=== PATIENT | male | born 1945 | race Caucasian/White ===

== ENCOUNTER 2020-01-12 12:51 | Observation (INO) | payer MEDICARE, BC ==
--- NOTE | 2020-01-12 12:56 | EDM.PDOC ---
ED HPI GENERAL MEDICAL PROBLEM - General Chief Complaint: Neuro Symptoms/Deficits Stated Complaint: FRANCISCO CAPUTOMOTariq Time Seen by Provider: 01/12/20 12:51 - History of Present Illness INITIAL COMMENTS - FREE TEXT/NARRATIVE: 74-year-old male brought in by EMS with left-sided weakness. Patient was last known normal around 1030 this morning are time. Right after this he developed some significant left arm weakness and to a lesser degree left leg weakness. He has some associated numbness but has a hard time describing this. By the time he arrives here he thinks he is back to normal on exam he had a little bit of ulnar drift on the left remaining weakness was not discernible on exam. Patient denies any other symptoms. Patient has no history of having symptoms like this in the past but he has had known vascular disease - Related Data Allergies Allergy/AdvReac Type Severity Reaction Status Date / Time Penicillins Allergy Other Verified 01/12/20 13:03 Home Meds: Home Meds Allopurinol [Zyloprim] 150 mg PO DAILY 01/12/20 [History] Aspirin [Aspirin EC] 81 mg PO DAILY 01/12/20 [History] Calcium Carbonate 600 mg PO DAILY 01/12/20 [History] Digoxin [Lanoxin] 250 mcg PO DAILY 01/12/20 [History] Indomethacin 1 - 2 mg PO DAILY 01/12/20 [History] Nortriptyline HCl [Pamelor] 100 mg PO BEDTIME 01/12/20 [History] Omeprazole 20 mg PO DAILY 01/12/20 [History] Pravastatin Sodium [Pravachol] 40 mg PO DAILY 01/12/20 [History] lisinopriL [Lisinopril] 0.5 tab PO DAILY 01/12/20 [History] ED ROS GENERAL - Review of Systems Review Of Systems: See Below HEENT: Reports: No Symptoms Respiratory: Reports: No Symptoms Cardiovascular: Reports: No Symptoms Endocrine: Reports: No Symptoms GI/Abdominal: Reports: No Symptoms : Reports: No Symptoms Neurological: Reports: Weakness. Denies: Confusion, Dizziness, Trouble Speaking Psychiatric: Reports: No Symptoms Hematologic/Lymphatic: Reports: No Symptoms ED EXAM, NEURO - Physical Exam Exam: See Below Exam Limited By: No Limitations General Appearance: Alert, No Apparent Distress Eye Exam: Bilateral Eye: EOMI, Normal Inspection, PERRL Ears: Normal External Exam, Normal Canal, Hearing Grossly Normal, Normal TMs Nose: Normal Inspection, Normal Mucosa, No Blood Throat/Mouth: Normal Inspection, Normal Lips, Normal Teeth, Normal Gums, Normal Oropharynx, Normal Voice, No Airway Compromise Head Exam: Atraumatic, Normocephalic Neck: Normal Inspection, Supple, Non-Tender, Full Range of Motion Respiratory/Chest: No Respiratory Distress, Lungs Clear, Normal Breath Sounds, No Accessory Muscle Use, Chest Non-Tender, Decreased Breath Sounds Cardiovascular: Regular Rate, Rhythm, No Edema, No Murmur GI/Abdominal: Normal Bowel Sounds, Soft, Non-Tender, No Distention Neurological: Alert, Normal Mood/Affect, Other (At the time of my initial exam he had some ulnar drift on the left arm however no other weakness was identified.) Back Exam: Normal Inspection. No: CVA Tenderness (L), CVA Tenderness (R) Extremities: Normal Inspection, Normal Range of Motion, Non-Tender Psychiatric: Normal Affect, Normal Mood Skin Exam: Warm, Dry, Intact Course - Vital Signs Last Recorded V/S: Last Vital Signs Temp 36.6 C 01/12/20 13:03 Pulse 88 01/12/20 13:03 Resp 18 01/12/20 13:03 BP 140/73 01/12/20 13:03 Pulse Ox 98 01/12/20 13:03 - Orders/Labs/Meds Orders: Active Orders 24 hr Category Date Time Status EKG Documentation Completion [RC] STAT Care 01/12/20 12:54 Active Sodium Chloride 0.9% [Normal Saline] 100 ml Med 01/12/20 14:00 Active IV ASDIRECTED Medication Orders Sodium Chloride (Normal Saline) 100 mls @ 60 mls/hr IV ASDIRECTED YUKO Last Admin: 01/12/20 14:26 Dose: 60 mls/hr Documented by: EH Labs: Laboratory Tests 01/12/20 01/12/20 01/12/20 Range/Units 13:04 13:15 13:15 WBC 7.68 (4.23-9.07) K/mm3 RBC 4.39 L (4.63-6.08) M/mm3 Hgb 14.0 (13.7-17.5) gm/dl Hct 40.8 (40.1-51.0) % MCV 92.9 H (79.0-92.2) fl MCH 31.9 (25.7-32.2) pg MCHC 34.3 (32.2-35.5) g/dl RDW Std Deviation 45.8 H (35.1-43.9) fL Plt Count 467 H (163-337) K/mm3 MPV 9.1 L (9.4-12.3) fl Neut % (Auto) 68.1 H (34.0-67.9) % Lymph % (Auto) 16.7 L (21.8-53.1) % [place] % (Auto) 12.9 H (5.3-12.2) % Eos % (Auto) 1.8 (0.8-7.0) Baso % (Auto) 0.5 (0.1-1.2) % Neut # (Auto) 5.23 (1.78-5.38) K/mm3 Lymph # (Auto) 1.28 L (1.32-3.57) K/mm3 [place] # (Auto) 0.99 H (0.30-0.82) K/mm3 Eos # (Auto) 0.14 (0.04-0.54) K/mm3 Baso # (Auto) 0.04 (0.01-0.08) K/mm3 PT 11.3 (9.7-11.7) SECONDS INR 1.06 APTT 29 (22-31) SECONDS Sodium (136-145) mEq/L Potassium (3.5-5.1) mEq/L Chloride (98-107) mEq/L Carbon Dioxide (21-32) mEq/L Anion Gap (5-15) BUN (7-18) mg/dL Creatinine (0.7-1.3) mg/dL Est Cr Clr Drug Dosing mL/min Estimated GFR (MDRD) (>60) mL/min BUN/Creatinine Ratio (14-18) Glucose (83-115) mg/dL POC Glucose 169 H (83-110) mg/dL Calcium (8.5-10.1) mg/dL Total Bilirubin (0.2-1.0) mg/dL AST (15-37) U/L ALT (16-63) U/L Alkaline Phosphatase (46-116) U/L Troponin I (0.00-0.056) ng/mL Total Protein (6.4-8.2) g/dl Albumin (3.4-5.0) g/dl Globulin gm/dL Albumin/Globulin Ratio (1-2) Digoxin (0.9-2.0) ng/mL 01/12/20 01/12/20 Range/Units 13:15 13:15 WBC (4.23-9.07) K/mm3 RBC (4.63-6.08) M/mm3 Hgb (13.7-17.5) gm/dl Hct (40.1-51.0) % MCV (79.0-92.2) fl MCH (25.7-32.2) pg MCHC (32.2-35.5) g/dl RDW Std Deviation (35.1-43.9) fL Plt Count (163-337) K/mm3 MPV (9.4-12.3) fl Neut % (Auto) (34.0-67.9) % Lymph % (Auto) (21.8-53.1) % [place] % (Auto) (5.3-12.2) % Eos % (Auto) (0.8-7.0) Baso % (Auto) (0.1-1.2) % Neut # (Auto) (1.78-5.38) K/mm3 Lymph # (Auto) (1.32-3.57) K/mm3 [place] # (Auto) (0.30-0.82) K/mm3 Eos # (Auto) (0.04-0.54) K/mm3 Baso # (Auto) (0.01-0.08) K/mm3 PT (9.7-11.7) SECONDS INR APTT (22-31) SECONDS Sodium 129 L (136-145) mEq/L Potassium 4.1 (3.5-5.1) mEq/L Chloride 93 L (98-107) mEq/L Carbon Dioxide 29 (21-32) mEq/L Anion Gap 11.1 (5-15) BUN 9 (7-18) mg/dL Creatinine 1.2 (0.7-1.3) mg/dL Est Cr Clr Drug Dosing 52.02 mL/min Estimated GFR (MDRD) 60 (>60) mL/min BUN/Creatinine Ratio 7.5 L (14-18) Glucose 174 H (83-115) mg/dL POC Glucose (83-110) mg/dL Calcium 8.6 (8.5-10.1) mg/dL Total Bilirubin 0.4 (0.2-1.0) mg/dL AST 19 (15-37) U/L ALT 25 (16-63) U/L Alkaline Phosphatase 96 (46-116) U/L Troponin I < 0.017 (0.00-0.056) ng/mL Total Protein 6.8 (6.4-8.2) g/dl Albumin 3.3 L (3.4-5.0) g/dl Globulin 3.5 gm/dL Albumin/Globulin Ratio 0.9 L (1-2) Digoxin < 0.2 L (0.9-2.0) ng/mL Meds: Medications Generic Name Dose Route Start Last Admin Trade Name Freq PRN Reason Stop Dose Admin Sodium Chloride 100 mls @ 60 mls/hr 01/12/20 14:00 01/12/20 14:26 Normal Saline IV 60 mls/hr ASDIRECTED YUKO Administration Discontinued Medications Generic Name Dose Route Start Last Admin Trade Name Freq PRN Reason Stop Dose Admin Aspirin 325 mg 01/12/20 14:23 Ecotrin PO 01/12/20 14:24 ONETIME ONE Clopidogrel Bisulfate 75 mg 01/12/20 14:23 Plavix PO 01/12/20 14:24 ONETIME ONE Sodium Chloride 1,000 mls @ 125 mls/hr 01/12/20 14:30 Normal Saline IV ASDIRECTED YUKO Sodium Chloride 500 mls @ 999 mls/hr 01/12/20 14:20 Normal Saline IV 01/12/20 14:50 .BOLUS ONE Iopamidol 100 ml 01/12/20 13:50 01/12/20 14:26 Isovue-370 (76%) IVPUSH 01/12/20 13:51 100 ml ONETIME ONE Administration Sodium Chloride 10 ml 01/12/20 13:50 01/12/20 14:26 Saline Flush FLUSH 01/12/20 13:51 10 ml ONETIME ONE Administration - Re-Assessments/Exams Free Text/Narrative Re-Assessment/Exam: 01/12/20 14:38 The patient appears to have had a TIA. After he returned from CT his ulnar drift was gone no other neurologic symptoms. Case discussed the case with Dr. Johnson, neurologist at [facility] in [place], he recommends CTA of head neck starting aspirin and Plavix for 3 weeks then monotherapy after this. He also recommends observation. His initial CT was unremarkable CTA of the head and neck is pending as is brain MRI. 01/12/20 16:01 CTA of the neck shows some mild atheromatous change within the carotid bulbs and proximal internal carotid arteries this is noted on both sides no other abnormalities really appreciated on the study no significant changes on the CTA of the head. 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 I discussed situation with Dr. Macdonald, the hospitalist the patient will go on observation. Departure - Departure Time of Disposition: 16:03 Disposition: Refer to Observation Clinical Impression: TIA (transient ischemic attack) - Discharge Information Referrals: Derrick Anderson MD [Primary Care Provider] - Forms: ED Department Discharge Sepsis Event Note (ED) - Focused Exam Vital Signs: Vital Signs Temp Pulse Resp BP Pulse Ox 01/12/20 13:03 36.6 C 88 18 140/73 98 - My Orders Last 24 Hours: My Active Orders 01/12/20 12:54 EKG Documentation Completion [RC] STAT 01/12/20 14:00 Sodium Chloride 0.9% [Normal Saline] 100 ml IV ASDIRECTED - Assessment/Plan Last 24 Hours: My Active Orders 01/12/20 12:54 EKG Documentation Completion [RC] STAT 01/12/20 14:00 Sodium Chloride 0.9% [Normal Saline] 100 ml IV ASDIRECTED
--- NOTE | 2020-01-12 13:39 | CT ---
Head CT Technique: Multiple axial sections through the brain were obtained. Intravenous contrast was not utilized. Comparison: No previous intracranial imaging is available. Findings: Ventricles along with basal cisterns and sulci over the convexities are mildly prominent. Minimal areas of diminished density are seen within the periventricular white matter most likely due to small vessel ischemic demyelination change. No other abnormal parenchymal densities are seen. No evidence of intracranial hemorrhage or mass-effect is appreciated. Bone window settings were reviewed. No acute calvarial finding is seen. Visualized mastoid sinuses and visualized paranasal sinuses show nothing acute. Impression: 1. Mild senescent change as noted above. 2. Nothing acute is identified on noncontrast head CT study. Note: Please correlate if patient's symptoms warrant further evaluation by MRI. Diagnostic code #2 This report was dictated in MDT
[2020-01-12] MEDS ORDERED: Iopamidol 755 Mg/ML 100 ML Bottle IVPUSH ONE (13:50)
[2020-01-12] MEDS ORDERED: Sodium Chloride 0.9% 10 ML Syringe FLUSH ONE (13:50)
[2020-01-12] MEDS ORDERED: Sodium Chloride 0.9% 100 ML IV SCH (14:00)
[2020-01-12] MEDS ORDERED: Sodium Chloride 0.9% 500 ML IV ONE (14:20)
[2020-01-12] MEDS ORDERED: Aspirin 325 MG Tab.EC PO ONE (14:23)
[2020-01-12] MEDS ORDERED: Clopidogrel 75 MG Tab PO ONE (14:23)
[2020-01-12] MEDS ORDERED: Sodium Chloride 0.9% 1,000 ML IV SCH (14:30)
--- NOTE | 2020-01-12 14:38 | MR ---
MRI brain Technique: T1 sagittal; T2, T2 FLAIR, T1 and diffusion axial; T1 FLAIR and T2 gradient echo coronal images were obtained. Comparison: Prior head CT study performed earlier on the same day (12:55 PM). Findings: Ventricles along with basal cisterns and sulci over the convexities are mildly prominent. Normal signal void is seen within the major cerebral arteries within the skull base. Mild areas of increased signal are scattered within the subcortical and periventricular white matter most likely representing minimal small vessel ischemic demyelination change. No other abnormal signal is seen within the brain parenchyma. 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 No other abnormal diffusion abnormalities are seen. Impression: 1. 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 2. Mild senescent change as noted above. 3. No additional abnormality is appreciated. Diagnostic code #3 This report was dictated in MDT
--- NOTE | 2020-01-12 15:07 | CT ---
CT neck angiogram Technique: Multiple axial sections through the neck were obtained. Intravenous contrast was utilized in the arterial phase. Multiple MIP images were obtained. Comparison: No prior vascular imaging of the neck is available. Findings: Vertebral arteries: Both vertebral arteries are fairly symmetric in size. No evidence of stenosis or occlusion. Nothing is seen to indicate dissection. Vertebral arteries are patent into the basilar artery. Carotid arteries: Common carotid arteries are patent on both sides. There is mild atheromatous irregularity being seen within the carotid bulb and proximal internal carotid arteries on both sides. No hemodynamic significant stenosis is seen. Other portions of the internal carotid arteries appeared normal. Proximal external carotid arteries appear within normal limits. Impression: 1. Mild atheromatous change within the carotid bulbs and proximal internal carotid arteries. This is noted on both sides. 2. No focal stenosis, occlusion or dissection is seen within the vertebral arteries, common carotid arteries or internal or external carotid arteries. Diagnostic code #2 This report was dictated in MDT
--- NOTE | 2020-01-12 15:07 | CT ---
CT angiogram of the brain Technique: Multiple axial sections through the brain were obtained. Intravenous contrast was utilized. Study obtained during the arterial phase. Findings: Carotid siphon appears to be patent into the middle and anterior cerebral arteries. No focal stenosis or occlusion is seen. Both vertebral arteries are patent into the basilar artery. Basilar artery is patent into the posterior cerebral arteries. Left posterior cerebral artery derives its major flow from the anterior circulation. No focal stenosis or occlusion is seen within the posterior cerebral arteries. No discrete aneurysm is appreciated. Impression: 1. No focal stenosis or occlusion or discrete aneurysm is seen within the visualized intracranial arteries. Diagnostic code #2 This report was dictated in MDT
[2020-01-12] MEDS ORDERED: Ondansetron 4 MG/2 ML SDV IV PRN (20:05)
[2020-01-12] MEDS ORDERED: Acetaminophen 325 MG Tab PO PRN (20:05)
--- NOTE | 2020-01-12 20:22 | PCM.HP.2 ---
H&P History of Present Illness - General Date of Service: 01/12/20 Admit Problem/Dx: Admission Diagnosis/Problem Admission Diagnosis/Problem TIA, Transient ischemic attack - History of Present Illness Initial Comments - Free Text/Narative: 74-year-old male with history of hypertension, hyperlipidemia, and gout presents to the emergency room after developing left arm weakness and left leg weakness at 1000 hrs. Patient states he was sitting in his chair and reached for a drink with his left hand and he found it was weak. His brought him to the clinic and by that time most of his symptoms had already resolved. He did have some numbness in his left foot that did not resolve until approximately 1830 hrs. Patient denies any blurred vision, double vision, dysarthria, headache, chest pain, or right-sided weakness. Patient denies any history of a stroke in the past. He does take a low-dose aspirin once a day. He states that he is on lisinopril and hydrochlorothiazide for his blood pressure and Pravachol for his cholesterol. Patient stopped smoking 20 years ago and smoked approximately 30 years 2 packs/day. He drinks 2-3 alcoholic beverages daily. In the emergency department a stroke alert was called. CT of the head was performed which showed nothing acute. MRI of the brain was then obtained which showed a small diffusion abnormality within the centrum semi-ovale of the right side compatible with minimal white matter infarct which is fairly acute. Mild senescent change. No additional abnormality. 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 No focal stenosis, occlusion, or dissection is seen within the vertebral arteries, common carotid arteries, or internal or external carotid arteries. No focal stenosis or occlusion or discrete aneurysm was seen within the visualized intracranial arteries. Emergency department physician called neurologist at [facility] in [place], Dr. Johnson, who recommended starting aspirin and Plavix for 3 weeks and then monotherapy after 3 weeks. He recommended observation. - Related Data Allergies/Adverse Reactions: Allergies Allergy/AdvReac Type Severity Reaction Status Date / Time Penicillins Allergy Other Verified 01/12/20 18:09 Home Medications: Home Meds Allopurinol [Zyloprim] 150 mg PO DAILY 01/12/20 [History] Aspirin [Aspirin EC] 81 mg PO BEDTIME 01/12/20 [History] Betamethasone/Propylene Glyc [Betamethasone DP Aug 0.05%] 1 applic TOP ASDIRECTED 01/12/20 [History] Calcium Carbonate 600 mg PO DAILY 01/12/20 [History] Clobetasol [Clobetasol Propionate 0.05% Cream] 1 applic TOP ASDIRECTED 01/12/20 [History] Digoxin [Lanoxin] 250 mcg PO DAILY 01/12/20 [History] Nortriptyline HCl [Pamelor] 100 mg PO BEDTIME 01/12/20 [History] Omeprazole 20 mg PO DAILY 01/12/20 [History] Pravastatin Sodium [Pravachol] 40 mg PO BEDTIME 01/12/20 [History] lisinopriL [Lisinopril] 5 mg PO BEDTIME 01/12/20 [History] Past Medical History HEENT History: Reports: Impaired Vision, Sinusitis Cardiovascular History: Reports: Hypertension, Other (See Below) Other Cardiovascular History: heart ?solomon kinked therefore on pravochol Respiratory History: Reports: Sleep Apnea Gastrointestinal History: Reports: Chronic Constipation, GERD Musculoskeletal History: Reports: Arthritis Psychiatric History: Reports: Anxiety Oncologic (Cancer) History: Reports: Other (See Below) Other Oncologic History: skin cancer? ears Dermatologic History: Reports: Psoriasis Other Dermatologic History: extremities psoriasis - Past Surgical History HEENT Surgical History: Reports: Cataract Surgery, Oral Surgery GI Surgical History: Reports: Appendectomy, Colonoscopy, Hernia Repair/Other, Polypectomy Other GI Surgeries/Procedures: 4 polyps removed Dermatological Surgical History: Reports: Other (See Below) Social & Family History - Family History Family Medical History: Noncontributory - Tobacco Use Smoking Status *Q: Former Smoker Used Tobacco, but Quit: Yes Month/Year Tobacco Last Used: 20 years - Caffeine Use Caffeine Use: Reports: Soda - Alcohol Use Days Per Week of Alcohol Use: 7 Number of Drinks Per Day: 2 Total Drinks Per Week: 14 Date of Last Drink: 01/11/20 Time of Last Drink: 19:00 - Recreational Drug Use Recreational Drug Use: No H&P Review of Systems - Review of Systems: Review Of Systems: Comprehensive ROS is negative, except as noted in HPI. Exam - Exam Exam: See Below - Vital Signs Vital Signs: Last Vital Signs Temp 97.9 F 01/12/20 17:15 Pulse 81 01/12/20 17:15 Resp 20 01/12/20 17:15 BP 167/85 H 01/12/20 17:15 Pulse Ox 100 01/12/20 17:15 Weight: 87.407 kg - Exam General: Alert, Oriented, 4 HEENT: Conjunctiva Clear, EOMI, Hearing Intact, Mucosa Moist & [place], Pupils Reactive, PERRLA Neck: Supple, Trachea Midline, 2 Lungs: Clear to Auscultation, Normal Respiratory Effort Cardiovascular: Regular Rate, Regular Rhythm, Normal S1, Normal S2. No: Systolic Murmur, Diastolic Murmur GI/Abdominal Exam: Normal Bowel Sounds, No Distention Back Exam: Normal Inspection Extremities: Normal Inspection, Normal Range of Motion, Non-Tender, No Pedal Edema, Normal Capillary Refill Peripheral Pulses: 2+: Posterior Tibial (L), Posterior Tibial (R), Dorsalis Pedis (L), Dorsalis Pedis (R) Skin: Warm, Dry, Intact Neurological: Cranial Nerves Intact. No: Strength Equal Bilateral (Left rn international strength is slightly diminished.) Neuro Extensive - Mental Status: Alert, Oriented x3, Normal Mood/Affect, Normal Cognition, Memory Intact Neuro Extensive - Motor, Sensory, Reflexes: CN II-XII Intact, Abnormal Finger to Nose (Left side). No: Dysarthria, Receptive Aphasia, Expressive Aphasia, Facial palsy (L), Facial Palsy (R), Abnormal Heel to Torres, Tremor Psychiatric: Alert, Normal Affect, Normal Mood - Patient Data Lab Results Last 24 hrs: Laboratory Results - last 24 hr 01/12/20 01/12/20 01/12/20 Range/Units 13:04 13:15 13:15 WBC 7.68 (4.23-9.07) K/mm3 RBC 4.39 L (4.63-6.08) M/mm3 Hgb 14.0 (13.7-17.5) gm/dl Hct 40.8 (40.1-51.0) % MCV 92.9 H (79.0-92.2) fl MCH 31.9 (25.7-32.2) pg MCHC 34.3 (32.2-35.5) g/dl RDW Std Deviation 45.8 H (35.1-43.9) fL Plt Count 467 H (163-337) K/mm3 MPV 9.1 L (9.4-12.3) fl Neut % (Auto) 68.1 H (34.0-67.9) % Lymph % (Auto) 16.7 L (21.8-53.1) % [place] % (Auto) 12.9 H (5.3-12.2) % Eos % (Auto) 1.8 (0.8-7.0) Baso % (Auto) 0.5 (0.1-1.2) % Neut # (Auto) 5.23 (1.78-5.38) K/mm3 Lymph # (Auto) 1.28 L (1.32-3.57) K/mm3 [place] # (Auto) 0.99 H (0.30-0.82) K/mm3 Eos # (Auto) 0.14 (0.04-0.54) K/mm3 Baso # (Auto) 0.04 (0.01-0.08) K/mm3 PT 11.3 (9.7-11.7) SECONDS INR 1.06 APTT 29 (22-31) SECONDS Sodium (136-145) mEq/L Potassium (3.5-5.1) mEq/L Chloride (98-107) mEq/L Carbon Dioxide (21-32) mEq/L Anion Gap (5-15) BUN (7-18) mg/dL Creatinine (0.7-1.3) mg/dL Est Cr Clr Drug Dosing mL/min Estimated GFR (MDRD) (>60) mL/min BUN/Creatinine Ratio (14-18) Glucose (83-115) mg/dL POC Glucose 169 H (83-110) mg/dL Calcium (8.5-10.1) mg/dL Total Bilirubin (0.2-1.0) mg/dL AST (15-37) U/L ALT (16-63) U/L Alkaline Phosphatase (46-116) U/L Troponin I (0.00-0.056) ng/mL Total Protein (6.4-8.2) g/dl Albumin (3.4-5.0) g/dl Globulin gm/dL Albumin/Globulin Ratio (1-2) Digoxin (0.9-2.0) ng/mL COVID-19 (JENNY) (NEGATIVE) 01/12/20 01/12/20 01/12/20 Range/Units 13:15 13:15 16:38 WBC (4.23-9.07) K/mm3 RBC (4.63-6.08) M/mm3 Hgb (13.7-17.5) gm/dl Hct (40.1-51.0) % MCV (79.0-92.2) fl MCH (25.7-32.2) pg MCHC (32.2-35.5) g/dl RDW Std Deviation (35.1-43.9) fL Plt Count (163-337) K/mm3 MPV (9.4-12.3) fl Neut % (Auto) (34.0-67.9) % Lymph % (Auto) (21.8-53.1) % [place] % (Auto) (5.3-12.2) % Eos % (Auto) (0.8-7.0) Baso % (Auto) (0.1-1.2) % Neut # (Auto) (1.78-5.38) K/mm3 Lymph # (Auto) (1.32-3.57) K/mm3 [place] # (Auto) (0.30-0.82) K/mm3 Eos # (Auto) (0.04-0.54) K/mm3 Baso # (Auto) (0.01-0.08) K/mm3 PT (9.7-11.7) SECONDS INR APTT (22-31) SECONDS Sodium 129 L (136-145) mEq/L Potassium 4.1 (3.5-5.1) mEq/L Chloride 93 L (98-107) mEq/L Carbon Dioxide 29 (21-32) mEq/L Anion Gap 11.1 (5-15) BUN 9 (7-18) mg/dL Creatinine 1.2 (0.7-1.3) mg/dL Est Cr Clr Drug Dosing 52.02 mL/min Estimated GFR (MDRD) 60 (>60) mL/min BUN/Creatinine Ratio 7.5 L (14-18) Glucose 174 H (83-115) mg/dL POC Glucose (83-110) mg/dL Calcium 8.6 (8.5-10.1) mg/dL Total Bilirubin 0.4 (0.2-1.0) mg/dL AST 19 (15-37) U/L ALT 25 (16-63) U/L Alkaline Phosphatase 96 (46-116) U/L Troponin I < 0.017 (0.00-0.056) ng/mL Total Protein 6.8 (6.4-8.2) g/dl Albumin 3.3 L (3.4-5.0) g/dl Globulin 3.5 gm/dL Albumin/Globulin Ratio 0.9 L (1-2) Digoxin < 0.2 L (0.9-2.0) ng/mL COVID-19 (JENNY) Negative (NEGATIVE) Result Diagrams: 01/12/20 13:15 01/12/20 13:15 Sepsis Event Note - Evaluation Sepsis Screening Result: No Definite Risk - Focused Exam Vital Signs: Vital Signs Temp Temp Pulse Pulse Resp BP BP 01/12/20 17:15 97.9 F 81 20 167/85 H 01/12/20 13:03 97.8 F 88 18 140/73 Pulse Ox 01/12/20 17:15 100 01/12/20 13:03 98 - Problem List (1) CVA (cerebral vascular accident) SNOMED Code(s): 045280561 ICD Code: I63.9 - CEREBRAL INFARCTION, UNSPECIFIED Status: Acute Current Visit: Yes (2) HTN (hypertension) SNOMED Code(s): 03218860 ICD Code: I10 - ESSENTIAL (PRIMARY) HYPERTENSION Status: Acute Current Visit: Yes (3) Hyperlipemia SNOMED Code(s): 17803345 ICD Code: E78.5 - HYPERLIPIDEMIA, UNSPECIFIED Status: Acute Current Visit: Yes Problem List Initiated/Reviewed/Updated: Yes Orders Last 24hrs: Active Orders 24 hr Category Date Time Status Admission Status [Patient Status] [ADT] Routine ADT 01/12/20 19:36 Active Oxygen Therapy [RC] PRN Care 01/12/20 20:05 Ordered Up ad Lauren [RC] ASDIRECTED Care 01/12/20 20:05 Ordered VTE/DVT Education [RC] PER UNIT ROUTINE Care 01/12/20 20:05 Ordered Vital Signs [RC] Q4H Care 01/12/20 20:05 Ordered OT Evaluation and Treatment [CONS] Routine Cons 01/12/20 20:05 Ordered PT Evaluation and Treatment [CONS] Routine Cons 01/12/20 20:05 Ordered Regular Diet [DIET] Diet 01/13/20 Breakfast Ordered CBC WITH AUTO DIFF [HEME] AM Lab 01/13/20 05:11 Ordered COMPREHENSIVE METABOLIC PN,CMP [CHEM] AM Lab 01/13/20 05:11 Ordered MAGNESIUM [CHEM] AM Lab 01/13/20 05:11 Ordered Acetaminophen [TylenoL] Med 01/12/20 20:05 Ordered 650 mg PO Q4H PRN Enoxaparin [Lovenox] Med 01/13/20 09:00 Ordered 40 mg SUBCUT DAILY Ondansetron [Zofran] Med 01/12/20 20:05 Ordered 4 mg IV Q4H PRN Resuscitation Status Routine Resus Stat 01/12/20 20:05 Ordered Medication Orders Acetaminophen (Tylenol) 650 mg PO Q4H PRN PRN Reason: Pain (Mild 1-3)/fever Enoxaparin Sodium (Lovenox) 40 mg SUBCUT DAILY YUKO Ondansetron HCl (Zofran) 4 mg IV Q4H PRN PRN Reason: Nausea/Vomiting Assessment/Plan Comment:: Assessment 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 * Persistent mild left-sided upper extremity weakness and unsteadiness. * Started on full dose aspirin and Plavix in the emergency department. * Was previously on low-dose aspirin. * Recommendation from neurologist Dr. Johnson continue aspirin and Plavix for 3 weeks then switched to monotherapy. Hypertension/hyperlipidemia * Patient and state he is on lisinopril, hydrochlorothiazide, and pravastatin. Unfortunately we do not have dose at this time. * Blood pressure fairly well controlled. Hyponatremia * Sodium 129 * Serum osmolality, urine osmolality, and urine sodium not obtained prior to bolus of normal saline. * Patient is on a thiazide diuretic. Hyperglycemia * Random glucose 174 * No history of diabetes Old medication profile shows he was on digoxin. Patient and his state he is not on digoxin and that he has never been told that he has an irregular heart for heart failure. Plan * Observation on medical floor * Telemetry * Echocardiogram * Continue aspirin and Plavix * Repeat CBC, CMP in the morning. * Get hemoglobin A1c, lipid panel, uric acid, TSH * Stop thiazide diuretics secondary to hyponatremia. * Review home medications when available. * Switch to Crestor 20 mg daily. * Encourage exercise and dietary changes. * PT/OT consult * VTE prophylaxis with Lovenox * CODE STATUS: Full code * Disposition: Refer for observation on medical floor with telemetry and finish TIA/CVA work-up. Length of stay 1 to 2 days. - Mortality Measure Prognosis:: Good
[2020-01-13 06:52] LABS: HEMOGLOBIN A1C 6.8 % (4.50-6.20)
--- NOTE | 2020-01-13 07:18 | PCM.PN ---
- General Info Date of Service: 01/13/20 Admission Dx/Problem (Free Text): Admission Diagnosis/Problem Admission Diagnosis/Problem TIA, Transient ischemic attack - Patient Data Vitals - Most Recent: Last Vital Signs Temp 97.5 F 01/13/20 03:27 Pulse 88 01/13/20 03:27 Resp 16 01/13/20 03:27 BP 132/84 01/13/20 03:27 Pulse Ox 96 01/13/20 03:27 Weight - Most Recent: 189 lb 9.6 oz I&O - Last 24 Hours: Intake & Output 01/12/20 01/13/20 01/13/20 22:59 06:59 14:59 Intake Total 250 Output Total 1025 Balance -775 Lab Results Last 24 Hours: Laboratory Results - last 24 hr 01/12/20 01/12/20 01/12/20 Range/Units 13:04 13:15 13:15 WBC 7.68 (4.23-9.07) K/mm3 RBC 4.39 L (4.63-6.08) M/mm3 Hgb 14.0 (13.7-17.5) gm/dl Hct 40.8 (40.1-51.0) % MCV 92.9 H (79.0-92.2) fl MCH 31.9 (25.7-32.2) pg MCHC 34.3 (32.2-35.5) g/dl RDW Std Deviation 45.8 H (35.1-43.9) fL Plt Count 467 H (163-337) K/mm3 MPV 9.1 L (9.4-12.3) fl Neut % (Auto) 68.1 H (34.0-67.9) % Lymph % (Auto) 16.7 L (21.8-53.1) % [place] % (Auto) 12.9 H (5.3-12.2) % Eos % (Auto) 1.8 (0.8-7.0) Baso % (Auto) 0.5 (0.1-1.2) % Neut # (Auto) 5.23 (1.78-5.38) K/mm3 Lymph # (Auto) 1.28 L (1.32-3.57) K/mm3 [place] # (Auto) 0.99 H (0.30-0.82) K/mm3 Eos # (Auto) 0.14 (0.04-0.54) K/mm3 Baso # (Auto) 0.04 (0.01-0.08) K/mm3 PT 11.3 (9.7-11.7) SECONDS INR 1.06 APTT 29 (22-31) SECONDS Sodium (136-145) mEq/L Potassium (3.5-5.1) mEq/L Chloride (98-107) mEq/L Carbon Dioxide (21-32) mEq/L Anion Gap (5-15) BUN (7-18) mg/dL Creatinine (0.7-1.3) mg/dL Est Cr Clr Drug Dosing mL/min Estimated GFR (MDRD) (>60) mL/min BUN/Creatinine Ratio (14-18) Glucose (83-115) mg/dL POC Glucose 169 H (83-110) mg/dL Hemoglobin A1c (4.50-6.20) % Calcium (8.5-10.1) mg/dL Magnesium (1.8-2.4) mg/dl Total Bilirubin (0.2-1.0) mg/dL AST (15-37) U/L ALT (16-63) U/L Alkaline Phosphatase (46-116) U/L Troponin I (0.00-0.056) ng/mL Total Protein (6.4-8.2) g/dl Albumin (3.4-5.0) g/dl Globulin gm/dL Albumin/Globulin Ratio (1-2) Triglycerides (<150) mg/dL Cholesterol (<200) mg/dL LDL Cholesterol Direct (<100) mg/dL HDL Cholesterol (40-59) mg/dL TSH 3rd Generation (0.358-3.74) uIU/mL Digoxin (0.9-2.0) ng/mL COVID-19 (JENNY) (NEGATIVE) 01/12/20 01/12/20 01/12/20 Range/Units 13:15 13:15 16:38 WBC (4.23-9.07) K/mm3 RBC (4.63-6.08) M/mm3 Hgb (13.7-17.5) gm/dl Hct (40.1-51.0) % MCV (79.0-92.2) fl MCH (25.7-32.2) pg MCHC (32.2-35.5) g/dl RDW Std Deviation (35.1-43.9) fL Plt Count (163-337) K/mm3 MPV (9.4-12.3) fl Neut % (Auto) (34.0-67.9) % Lymph % (Auto) (21.8-53.1) % [place] % (Auto) (5.3-12.2) % Eos % (Auto) (0.8-7.0) Baso % (Auto) (0.1-1.2) % Neut # (Auto) (1.78-5.38) K/mm3 Lymph # (Auto) (1.32-3.57) K/mm3 [place] # (Auto) (0.30-0.82) K/mm3 Eos # (Auto) (0.04-0.54) K/mm3 Baso # (Auto) (0.01-0.08) K/mm3 PT (9.7-11.7) SECONDS INR APTT (22-31) SECONDS Sodium 129 L (136-145) mEq/L Potassium 4.1 (3.5-5.1) mEq/L Chloride 93 L (98-107) mEq/L Carbon Dioxide 29 (21-32) mEq/L Anion Gap 11.1 (5-15) BUN 9 (7-18) mg/dL Creatinine 1.2 (0.7-1.3) mg/dL Est Cr Clr Drug Dosing 52.02 mL/min Estimated GFR (MDRD) 60 (>60) mL/min BUN/Creatinine Ratio 7.5 L (14-18) Glucose 174 H (83-115) mg/dL POC Glucose (83-110) mg/dL Hemoglobin A1c (4.50-6.20) % Calcium 8.6 (8.5-10.1) mg/dL Magnesium (1.8-2.4) mg/dl Total Bilirubin 0.4 (0.2-1.0) mg/dL AST 19 (15-37) U/L ALT 25 (16-63) U/L Alkaline Phosphatase 96 (46-116) U/L Troponin I < 0.017 (0.00-0.056) ng/mL Total Protein 6.8 (6.4-8.2) g/dl Albumin 3.3 L (3.4-5.0) g/dl Globulin 3.5 gm/dL Albumin/Globulin Ratio 0.9 L (1-2) Triglycerides (<150) mg/dL Cholesterol (<200) mg/dL LDL Cholesterol Direct (<100) mg/dL HDL Cholesterol (40-59) mg/dL TSH 3rd Generation (0.358-3.74) uIU/mL Digoxin < 0.2 L (0.9-2.0) ng/mL COVID-19 (JENNY) Negative (NEGATIVE) 01/13/20 01/13/20 01/13/20 Range/Units 05:17 05:17 05:17 WBC 7.99 (4.23-9.07) K/mm3 RBC 4.52 L (4.63-6.08) M/mm3 Hgb 14.2 (13.7-17.5) gm/dl Hct 42.5 (40.1-51.0) % MCV 94.0 H (79.0-92.2) fl MCH 31.4 (25.7-32.2) pg MCHC 33.4 (32.2-35.5) g/dl RDW Std Deviation 45.4 H (35.1-43.9) fL Plt Count 502 H (163-337) K/mm3 MPV 9.2 L (9.4-12.3) fl Neut % (Auto) 67.7 (34.0-67.9) % Lymph % (Auto) 16.5 L (21.8-53.1) % [place] % (Auto) 12.8 H (5.3-12.2) % Eos % (Auto) 2.0 (0.8-7.0) Baso % (Auto) 0.5 (0.1-1.2) % Neut # (Auto) 5.41 H (1.78-5.38) K/mm3 Lymph # (Auto) 1.32 (1.32-3.57) K/mm3 [place] # (Auto) 1.02 H (0.30-0.82) K/mm3 Eos # (Auto) 0.16 (0.04-0.54) K/mm3 Baso # (Auto) 0.04 (0.01-0.08) K/mm3 PT (9.7-11.7) SECONDS INR APTT (22-31) SECONDS Sodium 131 L (136-145) mEq/L Potassium 4.0 (3.5-5.1) mEq/L Chloride 97 L (98-107) mEq/L Carbon Dioxide 26 (21-32) mEq/L Anion Gap 12.0 (5-15) BUN 11 (7-18) mg/dL Creatinine 1.2 (0.7-1.3) mg/dL Est Cr Clr Drug Dosing 52.02 mL/min Estimated GFR (MDRD) 60 (>60) mL/min BUN/Creatinine Ratio 9.2 L (14-18) Glucose 116 H (83-115) mg/dL POC Glucose (83-110) mg/dL Hemoglobin A1c 6.80 H (4.50-6.20) % Calcium 8.9 (8.5-10.1) mg/dL Magnesium 2.0 (1.8-2.4) mg/dl Total Bilirubin 0.4 (0.2-1.0) mg/dL AST 18 (15-37) U/L ALT 18 (16-63) U/L Alkaline Phosphatase 88 (46-116) U/L Troponin I (0.00-0.056) ng/mL Total Protein 6.8 (6.4-8.2) g/dl Albumin 3.3 L (3.4-5.0) g/dl Globulin 3.5 gm/dL Albumin/Globulin Ratio 0.9 L (1-2) Triglycerides 66 (<150) mg/dL Cholesterol 106 (<200) mg/dL LDL Cholesterol Direct 35 (<100) mg/dL HDL Cholesterol 54.0 (40-59) mg/dL TSH 3rd Generation 1.157 (0.358-3.74) uIU/mL Digoxin (0.9-2.0) ng/mL COVID-19 (JENNY) (NEGATIVE) Med Orders - Current: Current Medications Acetaminophen (Tylenol) 650 mg PO Q4H PRN PRN Reason: Pain (Mild 1-3)/fever Aspirin (Ecotrin) 325 mg PO DAILY YUKO Clopidogrel Bisulfate (Plavix) 75 mg PO DAILY YUKO Enoxaparin Sodium (Lovenox) 40 mg SUBCUT DAILY YUKO Ondansetron HCl (Zofran) 4 mg IV Q4H PRN PRN Reason: Nausea/Vomiting Discontinued Medications Aspirin (Ecotrin) 325 mg PO ONETIME ONE Stop: 01/12/20 14:24 Last Admin: 01/12/20 16:11 Dose: 325 mg Documented by: Clopidogrel Bisulfate (Plavix) 75 mg PO ONETIME ONE Stop: 01/12/20 14:24 Last Admin: 01/12/20 16:11 Dose: 75 mg Documented by: Sodium Chloride (Normal Saline) 100 mls @ 60 mls/hr IV ASDIRECTED YUKO Last Admin: 01/12/20 14:26 Dose: 60 mls/hr Documented by: Sodium Chloride (Normal Saline) 1,000 mls @ 125 mls/hr IV ASDIRECTED YUKO Sodium Chloride (Normal Saline) 500 mls @ 999 mls/hr IV .BOLUS ONE Stop: 01/12/20 14:50 Last Admin: 01/12/20 16:11 Dose: Not Given Documented by: Iopamidol (Isovue-370 (76%)) 100 ml IVPUSH ONETIME ONE Stop: 01/12/20 13:51 Last Admin: 01/12/20 14:26 Dose: 100 ml Documented by: Sodium Chloride (Saline Flush) 10 ml FLUSH ONETIME ONE Stop: 01/12/20 13:51 Last Admin: 01/12/20 14:26 Dose: 10 ml Documented by: Sepsis Event Note - Evaluation Sepsis Screening Result: No Definite Risk - Focused Exam Vital Signs: Vital Signs Temp Pulse Resp BP Pulse Ox Pulse Ox 01/13/20 03:27 97.5 F 88 16 132/84 96 01/12/20 23:39 97.9 F 81 16 142/78 H 94 L 01/12/20 22:08 98.1 F 87 16 142/84 H 96 01/12/20 20:05 100 - My Orders Last 24 Hours: My Active Orders 01/13/20 07:30 Betamethasone/Propylene Glyc [Betamethasone DP Aug 0.05%] 1 applic TOP ASDIRECTED Clobetasol 1 applic TOP ASDIRECTED 01/13/20 09:00 Calcium Carbonate 600 mg PO DAILY Digoxin [Lanoxin] 250 mcg PO DAILY Omeprazole 20 mg PO DAILY allopurinoL [Zyloprim] 150 mg PO DAILY 01/13/20 21:00 Nortriptyline HCl [Pamelor] 100 mg PO BEDTIME Pravastatin Sodium 40 mg PO BEDTIME lisinopriL [Prinivil] 5 mg PO BEDTIME - Plan Plan:: Assessment 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 * Persistent mild left-sided upper extremity weakness and unsteadiness. * Started on full dose aspirin and Plavix in the emergency department. * Was previously on low-dose aspirin. * Recommendation from neurologist Dr. Johnson continue aspirin and Plavix for 3 weeks then switched to monotherapy. Hypertension/hyperlipidemia * Patient and state he is on lisinopril, hydrochlorothiazide, and pravastatin. Unfortunately we do not have dose at this time. * Blood pressure fairly well controlled. Hyponatremia * Sodium 129 * Serum osmolality, urine osmolality, and urine sodium not obtained prior to bolus of normal saline. * Patient is on a thiazide diuretic. Hyperglycemia * Random glucose 174 * No history of diabetes Old medication profile shows he was on digoxin. Patient and his state he is not on digoxin and that he has never been told that he has an irregular heart for heart failure. Plan * Observation on medical floor * Telemetry * Echocardiogram * Continue aspirin and Plavix * Repeat CBC, CMP in the morning. * Get hemoglobin A1c, lipid panel, uric acid, TSH * Stop thiazide diuretics secondary to hyponatremia. * Review home medications when available. * Switch to Crestor 20 mg daily. * Encourage exercise and dietary changes. * PT/OT consult * VTE prophylaxis with Lovenox * CODE STATUS: Full code * Disposition: Refer for observation on medical floor with telemetry and finish TIA/CVA work-up. Length of stay 1 to 2 days.
[2020-01-13] MEDS ORDERED: Non-Formulary Medication 1 Each (Clobetasol 1 APPLIC) TOP SCH (07:30)
[2020-01-13] MEDS ORDERED: Non-Formulary Medication 1 Each (Betamethasone/Propylene Glyc [Betamethasone Dp Aug 0.05%] TOP SCH (07:30)
[2020-01-13] MEDS ORDERED: Clopidogrel 75 MG Tab PO SCH (09:00)
[2020-01-13] MEDS ORDERED: Digoxin 250 MCG Tab PO SCH (09:00)
[2020-01-13] MEDS ORDERED: Non-Formulary Medication 1 Each (Omeprazole 20 MG) PO SCH (09:00)
[2020-01-13] MEDS ORDERED: Allopurinol 300 MG Tab PO SCH (09:00)
[2020-01-13] MEDS ORDERED: Calcium Carbonate 600 MG Tab PO SCH (09:00)
[2020-01-13] MEDS ORDERED: Aspirin 325 MG Tab.EC PO SCH (09:00)
[2020-01-13] MEDS ORDERED: Enoxaparin 40 MG/0.4 ML Syringe SUBCUT SCH (09:00)
--- NOTE | 2020-01-13 12:55 | PCM.DCSUM1 ---
Discharge Summary - Hospital Course HPI Initial Comments: 74-year-old male with history of hypertension, hyperlipidemia, and gout presents to the emergency room after developing left arm weakness and left leg weakness at 1000 hrs. Patient states he was sitting in his chair and reached for a drink with his left hand and he found it was weak. His brought him to the clinic and by that time most of his symptoms had already resolved. He did have some numbness in his left foot that did not resolve until approximately 1830 hrs. Patient denies any blurred vision, double vision, dysarthria, headache, chest pain, or right-sided weakness. Patient denies any history of a stroke in the past. He does take a low-dose aspirin once a day. He states that he is on lisinopril and hydrochlorothiazide for his blood pressure and Pravachol for his cholesterol. Patient stopped smoking 20 years ago and smoked approximately 30 years 2 packs/day. He drinks 2-3 alcoholic beverages daily. In the emergency department a stroke alert was called. CT of the head was performed which showed nothing acute. MRI of the brain was then obtained which showed a small diffusion abnormality within the centrum semi-ovale of the right side compatible with minimal white matter infarct which is fairly acute. Mild senescent change. No additional abnormality. 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 No focal stenosis, occlusion, or dissection is seen within the vertebral arteries, common carotid arteries, or internal or external carotid arteries. No focal stenosis or occlusion or discrete aneurysm was seen within the visualized intracranial arteries. Emergency department physician called neurologist at [facility] in [place], Dr. Johnson, who recommended starting aspirin and Plavix for 3 weeks and then monotherapy after 3 weeks. He recommended observation. Diagnosis: Stroke: No - Discharge Data Discharge Date: 01/13/20 (Admit date: 01/11/30) Discharge Disposition: Home, Self-Care 01 Condition: Good - Referral to Home Health Primary Care Physician: Derrick Anderson MD - Discharge Diagnosis/Problem(s) (1) CVA (cerebral vascular accident) SNOMED Code(s): 710175174 ICD Code: I63.9 - CEREBRAL INFARCTION, UNSPECIFIED Status: Acute Priority: High Current Visit: Yes Qualifiers: CVA mechanism: unspecified Qualified Code(s): I63.9 - Cerebral infarction, unspecified (2) HTN (hypertension) SNOMED Code(s): 83349163 ICD Code: I10 - ESSENTIAL (PRIMARY) HYPERTENSION Status: Chronic Priority: Medium Current Visit: Yes Qualifiers: Hypertension type: unspecified Qualified Code(s): I10 - Essential (primary) hypertension (3) Hyperlipemia SNOMED Code(s): 66371346 ICD Code: E78.5 - HYPERLIPIDEMIA, UNSPECIFIED Status: Chronic Priority: High Current Visit: Yes Qualifiers: Hyperlipidemia type: unspecified Qualified Code(s): E78.5 - Hyperlipidemia, unspecified - Patient Summary/Data Consults: Consultations 01/12/20 20:05 OT Evaluation and Treatment [CONS] Routine PT Evaluation and Treatment [CONS] Routine Labs Pending at D/C: Echocardiogram pending Discharged on 48 hour Holter monitor Recommended Follow-up Testing/Procedures: Follow-up with PCP within 7-10 days of discharge, sooner if needed. Hospital Course: Robbin was admitted to the hospital floor due to CVA with residual left-sided weakness at the recommendation of [facility] neurology. CTA of the head and neck along with MRI were obtained in the ED as noted in the admission HPI. Since that time his symptoms have completely resolved. He has equal strength bilaterally in both upper and lower extremities. No arm drift. Cranial nerves are intact. He has been up ambulating. He was started on daily 325 mg aspirin and 75 mg Plavix at the recommendation of neurology. This will be continued for 3 weeks, at which time his primary care provider can determine if he needs to remain on it longer. Lipid panel was within normal limits. TSH was within normal limits. Hemoglobin A1c was obtained was 6.8. Patient reports that he has been "prediabetic "for some time. Patient was started on 500 mg metformin t wice daily with his first dose to occur on 01/15/2020. This delay is due to him receiving IV contrast for his scans. He will be discharged on a Holter monitor for 48 hours with results to be forwarded to Dr. Anderson. Echocardiogram was obtained today and results are still pending. Patient will be contacted should the results return abnormal, otherwise results will be sent to patient's PCP. Recommend he follow-up with outpatient dietitian and diabetic education. These appointments were made prior to discharge. Recommend he follow-up with his primary care provider within 7 to 10 days of discharge, sooner if needed. He was advised to immediately seek medical care via the ED or 911 should symptoms return. Discharged home today. - Patient Instructions Diet: Diabetic Diet Activity: As Tolerated Showering/Bathing: May Shower Notify Provider of: Fever, Increased Pain, Nausea and/or Vomiting Other/Special Instructions: Follow-up with primary care provider within 7-10 days of dishcarge, sooner if needed. We recommend outpatient diabetic education and automotive software engineer consults. Take all new medications as prescribed. You were given a prescription for the diabetic medication metformin. You recieved IV contrast with your head and neck scans. You should begin taking this medication twice daily with meals starting 01/15/2020 due to the contrast. You were also started on higher dose aspirin and plavix. You should continue these for a minimum of 3 weeks per neurology. You can discuss continuing this after this timeframe with Dr. Anderson. Prior to you leaving we obtained an echocardiogram (ultrasound) of your heart. Results for this could take several days. We will contact you should anything abnormal return. Otherwise, results will be sent to Dr. Anderson and he can address results with you. Resume home medications as directed. You were sent home with a 48hour holter monitor (air sampling and monitoring). Follow the directions with this. Your heart rhythm will be reviewed and sent to Dr. Anderson. Should symptoms return or worsen contact 911 r or return to the Emergency Department. - Discharge Plan *PRESCRIPTION DRUG MONITORING PROGRAM REVIEWED*: No *COPY OF PRESCRIPTION DRUG MONITORING REPORT IN PATIENT ALISON: No Prescriptions/Med Rec: Aspirin [Ecotrin EC] 325 mg PO DAILY #21 tab.ec metFORMIN [Glucophage XR] 500 mg PO BIDMEALS #60 tab.er Clopidogrel [Plavix] 75 mg PO DAILY #21 tablet Home Medications: Home Meds Allopurinol [Zyloprim] 150 mg PO DAILY 01/12/20 [History] Betamethasone/Propylene Glyc [Betamethasone DP Aug 0.05%] 1 applic TOP ASDIRECTED 01/12/20 [History] Calcium Carbonate 600 mg PO DAILY 01/12/20 [History] Clobetasol [Clobetasol Propionate 0.05% Cream] 1 applic TOP ASDIRECTED 01/12/20 [History] Nortriptyline HCl [Pamelor] 100 mg PO BEDTIME 01/12/20 [History] Omeprazole 20 mg PO DAILY 01/12/20 [History] Pravastatin Sodium [Pravachol] 40 mg PO BEDTIME 01/12/20 [History] lisinopriL [Lisinopril] 5 mg PO BEDTIME 01/12/20 [History] Aspirin [Ecotrin EC] 325 mg PO DAILY #21 tab.ec 01/13/20 [Rx] Clopidogrel [Plavix] 75 mg PO DAILY #21 tablet 01/13/20 [Rx] carvediloL [Coreg] 25 mg PO BID 01/13/20 [History] hydroCHLOROthiazide [Hydrochlorothiazide] 12.5 mg PO DAILY 01/13/20 [History] metFORMIN [Glucophage XR] 500 mg PO BIDMEALS #60 tab.er 01/13/20 [Rx] Oxygen Therapy Mode: Room Air Patient Handouts: Stroke Prevention, Diabetes Mellitus and Sick Day Management, Warning Signs of a Stroke, Diabetes Basics, Type 2 Diabetes Mellitus, Self Care, Adult, Ischemic Stroke, Preventing Diabetes Mellitus Complications, Blood Glucose Monitoring, Adult, Insulin Injection Instructions, Using Insulin Pens, Pediatric Referrals: Derrick Anderson MD [Primary Care Provider] - - Discharge Summary/Plan Comment DC Time >30 min.: Yes (45 mins ) - General Info Date of Service: 01/13/20 Functional Status: Reports: Pain Controlled, Tolerating Diet, Ambulating, Urinating. Denies: New Symptoms - Review of Systems General: Reports: No Symptoms. Denies: Fever, Weakness, Fatigue, Malaise, Chills HEENT: Reports: No Symptoms. Denies: Headaches, Sore Throat Pulmonary: Reports: No Symptoms. Denies: Shortness of Breath, Cough, Sputum, Wheezing Cardiovascular: Reports: No Symptoms. Denies: Chest Pain, Palpitations, Dyspnea on Exertion, Edema Gastrointestinal: Reports: No Symptoms. Denies: Abdominal Pain, Constipation, Decreased Appetite, Diarrhea, Difficulty Swallowing, Nausea, Vomiting Genitourinary: Reports: No Symptoms. Denies: Pain Musculoskeletal: Reports: No Symptoms Skin: Reports: No Symptoms. Denies: Cyanosis Neurological: Reports: No Symptoms. Denies: Confusion, Dizziness, Headache, Numbness, Paresthesia, Pre-Existing Deficit, Syncope, Tingling, Tremors, Trouble Speaking, Difficulty Walking, Weakness, Change in Speech, Gait Disturbance Psychiatric: Reports: No Symptoms - Patient Data Vitals - Most Recent: Last Vital Signs Temp 97.0 F 01/13/20 12:16 Pulse 80 01/13/20 12:16 Resp 20 01/13/20 12:16 BP 134/88 01/13/20 12:16 Pulse Ox 95 01/13/20 12:16 Weight - Most Recent: 189 lb 9.6 oz I&O - Last 24 hours: Intake & Output 01/12/20 01/13/20 01/13/20 22:59 06:59 14:59 Intake Total 250 Output Total 1025 Balance -775 Lab Results - Last 24 hrs: Laboratory Results - last 24 hr 01/12/20 01/12/20 01/12/20 Range/Units 13:04 13:15 13:15 WBC 7.68 (4.23-9.07) K/mm3 RBC 4.39 L (4.63-6.08) M/mm3 Hgb 14.0 (13.7-17.5) gm/dl Hct 40.8 (40.1-51.0) % MCV 92.9 H (79.0-92.2) fl MCH 31.9 (25.7-32.2) pg MCHC 34.3 (32.2-35.5) g/dl RDW Std Deviation 45.8 H (35.1-43.9) fL Plt Count 467 H (163-337) K/mm3 MPV 9.1 L (9.4-12.3) fl Neut % (Auto) 68.1 H (34.0-67.9) % Lymph % (Auto) 16.7 L (21.8-53.1) % [place] % (Auto) 12.9 H (5.3-12.2) % Eos % (Auto) 1.8 (0.8-7.0) Baso % (Auto) 0.5 (0.1-1.2) % Neut # (Auto) 5.23 (1.78-5.38) K/mm3 Lymph # (Auto) 1.28 L (1.32-3.57) K/mm3 [place] # (Auto) 0.99 H (0.30-0.82) K/mm3 Eos # (Auto) 0.14 (0.04-0.54) K/mm3 Baso # (Auto) 0.04 (0.01-0.08) K/mm3 PT 11.3 (9.7-11.7) SECONDS INR 1.06 APTT 29 (22-31) SECONDS Sodium (136-145) mEq/L Potassium (3.5-5.1) mEq/L Chloride (98-107) mEq/L Carbon Dioxide (21-32) mEq/L Anion Gap (5-15) BUN (7-18) mg/dL Creatinine (0.7-1.3) mg/dL Est Cr Clr Drug Dosing mL/min Estimated GFR (MDRD) (>60) mL/min BUN/Creatinine Ratio (14-18) Glucose (83-115) mg/dL POC Glucose 169 H (83-110) mg/dL Hemoglobin A1c (4.50-6.20) % Uric Acid (3.5-7.2) mg/dL Calcium (8.5-10.1) mg/dL Magnesium (1.8-2.4) mg/dl Total Bilirubin (0.2-1.0) mg/dL AST (15-37) U/L ALT (16-63) U/L Alkaline Phosphatase (46-116) U/L Troponin I (0.00-0.056) ng/mL Total Protein (6.4-8.2) g/dl Albumin (3.4-5.0) g/dl Globulin gm/dL Albumin/Globulin Ratio (1-2) Triglycerides (<150) mg/dL Cholesterol (<200) mg/dL LDL Cholesterol Direct (<100) mg/dL HDL Cholesterol (40-59) mg/dL TSH 3rd Generation (0.358-3.74) uIU/mL Digoxin (0.9-2.0) ng/mL COVID-19 (JENNY) (NEGATIVE) 01/12/20 01/12/20 01/12/20 Range/Units 13:15 13:15 16:38 WBC (4.23-9.07) K/mm3 RBC (4.63-6.08) M/mm3 Hgb (13.7-17.5) gm/dl Hct (40.1-51.0) % MCV (79.0-92.2) fl MCH (25.7-32.2) pg MCHC (32.2-35.5) g/dl RDW Std Deviation (35.1-43.9) fL Plt Count (163-337) K/mm3 MPV (9.4-12.3) fl Neut % (Auto) (34.0-67.9) % Lymph % (Auto) (21.8-53.1) % [place] % (Auto) (5.3-12.2) % Eos % (Auto) (0.8-7.0) Baso % (Auto) (0.1-1.2) % Neut # (Auto) (1.78-5.38) K/mm3 Lymph # (Auto) (1.32-3.57) K/mm3 [place] # (Auto) (0.30-0.82) K/mm3 Eos # (Auto) (0.04-0.54) K/mm3 Baso # (Auto) (0.01-0.08) K/mm3 PT (9.7-11.7) SECONDS INR APTT (22-31) SECONDS Sodium 129 L (136-145) mEq/L Potassium 4.1 (3.5-5.1) mEq/L Chloride 93 L (98-107) mEq/L Carbon Dioxide 29 (21-32) mEq/L Anion Gap 11.1 (5-15) BUN 9 (7-18) mg/dL Creatinine 1.2 (0.7-1.3) mg/dL Est Cr Clr Drug Dosing 52.02 mL/min Estimated GFR (MDRD) 60 (>60) mL/min BUN/Creatinine Ratio 7.5 L (14-18) Glucose 174 H (83-115) mg/dL POC Glucose (83-110) mg/dL Hemoglobin A1c (4.50-6.20) % Uric Acid (3.5-7.2) mg/dL Calcium 8.6 (8.5-10.1) mg/dL Magnesium (1.8-2.4) mg/dl Total Bilirubin 0.4 (0.2-1.0) mg/dL AST 19 (15-37) U/L ALT 25 (16-63) U/L Alkaline Phosphatase 96 (46-116) U/L Troponin I < 0.017 (0.00-0.056) ng/mL Total Protein 6.8 (6.4-8.2) g/dl Albumin 3.3 L (3.4-5.0) g/dl Globulin 3.5 gm/dL Albumin/Globulin Ratio 0.9 L (1-2) Triglycerides (<150) mg/dL Cholesterol (<200) mg/dL LDL Cholesterol Direct (<100) mg/dL HDL Cholesterol (40-59) mg/dL TSH 3rd Generation (0.358-3.74) uIU/mL Digoxin < 0.2 L (0.9-2.0) ng/mL COVID-19 (JENNY) Negative (NEGATIVE) 01/13/20 01/13/20 01/13/20 Range/Units 05:17 05:17 05:17 WBC 7.99 (4.23-9.07) K/mm3 RBC 4.52 L (4.63-6.08) M/mm3 Hgb 14.2 (13.7-17.5) gm/dl Hct 42.5 (40.1-51.0) % MCV 94.0 H (79.0-92.2) fl MCH 31.4 (25.7-32.2) pg MCHC 33.4 (32.2-35.5) g/dl RDW Std Deviation 45.4 H (35.1-43.9) fL Plt Count 502 H (163-337) K/mm3 MPV 9.2 L (9.4-12.3) fl Neut % (Auto) 67.7 (34.0-67.9) % Lymph % (Auto) 16.5 L (21.8-53.1) % [place] % (Auto) 12.8 H (5.3-12.2) % Eos % (Auto) 2.0 (0.8-7.0) Baso % (Auto) 0.5 (0.1-1.2) % Neut # (Auto) 5.41 H (1.78-5.38) K/mm3 Lymph # (Auto) 1.32 (1.32-3.57) K/mm3 [place] # (Auto) 1.02 H (0.30-0.82) K/mm3 Eos # (Auto) 0.16 (0.04-0.54) K/mm3 Baso # (Auto) 0.04 (0.01-0.08) K/mm3 PT (9.7-11.7) SECONDS INR APTT (22-31) SECONDS Sodium 131 L (136-145) mEq/L Potassium 4.0 (3.5-5.1) mEq/L Chloride 97 L (98-107) mEq/L Carbon Dioxide 26 (21-32) mEq/L Anion Gap 12.0 (5-15) BUN 11 (7-18) mg/dL Creatinine 1.2 (0.7-1.3) mg/dL Est Cr Clr Drug Dosing 52.02 mL/min Estimated GFR (MDRD) 60 (>60) mL/min BUN/Creatinine Ratio 9.2 L (14-18) Glucose 116 H (83-115) mg/dL POC Glucose (83-110) mg/dL Hemoglobin A1c 6.80 H (4.50-6.20) % Uric Acid 5.1 (3.5-7.2) mg/dL Calcium 8.9 (8.5-10.1) mg/dL Magnesium 2.0 (1.8-2.4) mg/dl Total Bilirubin 0.4 (0.2-1.0) mg/dL AST 18 (15-37) U/L ALT 18 (16-63) U/L Alkaline Phosphatase 88 (46-116) U/L Troponin I (0.00-0.056) ng/mL Total Protein 6.8 (6.4-8.2) g/dl Albumin 3.3 L (3.4-5.0) g/dl Globulin 3.5 gm/dL Albumin/Globulin Ratio 0.9 L (1-2) Triglycerides 66 (<150) mg/dL Cholesterol 106 (<200) mg/dL LDL Cholesterol Direct 35 (<100) mg/dL HDL Cholesterol 54.0 (40-59) mg/dL TSH 3rd Generation 1.157 (0.358-3.74) uIU/mL Digoxin (0.9-2.0) ng/mL COVID-19 (JENNY) (NEGATIVE) Med Orders - Current: Current Medications Acetaminophen (Tylenol) 650 mg PO Q4H PRN PRN Reason: Pain (Mild 1-3)/fever Allopurinol (Zyloprim) 150 mg PO DAILY YUKO Aspirin (Ecotrin) 325 mg PO DAILY [facility] Last Admin: 01/13/20 08:15 Dose: 325 mg Documented by: Calcium Carbonate/Glycine (Calcium Carbonate) 600 mg PO DAILY [facility] Last Admin: 01/13/20 08:15 Dose: 600 mg Documented by: Clopidogrel Bisulfate (Plavix) 75 mg PO DAILY [facility] Last Admin: 01/13/20 08:15 Dose: 75 mg Documented by: Enoxaparin Sodium (Lovenox) 40 mg SUBCUT DAILY [facility] Last Admin: 01/13/20 08:15 Dose: 40 mg Documented by: Lisinopril (Prinivil) 5 mg PO BEDTIME [facility] Non-Formulary Medication (Betamethasone/Propylene Glyc [Betamethasone Dp Aug 0.05%]) 1 applic TOP ASDIRECTED [facility] Non-Formulary Medication (Clobetasol) 1 applic TOP ASDIRECTED [facility] Non-Formulary Medication (Nortriptyline Hcl [Pamelor]) 100 mg PO BEDTIME [facility] Non-Formulary Medication (Omeprazole) 20 mg PO DAILY [facility] Non-Formulary Medication (Pravastatin Sodium) 40 mg PO BEDTIME [facility] Ondansetron HCl (Zofran) 4 mg IV Q4H PRN PRN Reason: Nausea/Vomiting Discontinued Medications Aspirin (Ecotrin) 325 mg PO ONETIME ONE Stop: 01/12/20 14:24 Last Admin: 01/12/20 16:11 Dose: 325 mg Documented by: Clopidogrel Bisulfate (Plavix) 75 mg PO ONETIME ONE Stop: 01/12/20 14:24 Last Admin: 01/12/20 16:11 Dose: 75 mg Documented by: Digoxin (Lanoxin) 250 mcg PO DAILY [facility] Sodium Chloride (Normal Saline) 100 mls @ 60 mls/hr IV ASDIRECTED [facility] Last Admin: 01/12/20 14:26 Dose: 60 mls/hr Documented by: Sodium Chloride (Normal Saline) 1,000 mls @ 125 mls/hr IV ASDIRECTED [facility] Sodium Chloride (Normal Saline) 500 mls @ 999 mls/hr IV .BOLUS ONE Stop: 01/12/20 14:50 Last Admin: 01/12/20 16:11 Dose: Not Given Documented by: Iopamidol (Isovue-370 (76%)) 100 ml IVPUSH ONETIME ONE Stop: 01/12/20 13:51 Last Admin: 01/12/20 14:26 Dose: 100 ml Documented by: Metformin HCl (Glucophage) 500 mg PO BIDMEALS YUKO Sodium Chloride (Saline Flush) 10 ml FLUSH ONETIME ONE Stop: 01/12/20 13:51 Last Admin: 01/12/20 14:26 Dose: 10 ml Documented by: - Exam Quality Assessment: Reports: DVT Prophylaxis. Denies: Supplemental Oxygen, Urine Catheter General: Reports: Alert, Oriented, Cooperative, No Acute Distress HEENT: Reports: Pupils Equal, Pupils Reactive, Mucous Membr. Moist/Magazine Neck: Reports: Supple, Trachea Midline Lungs: Reports: Clear to Auscultation, Normal Respiratory Effort Cardiovascular: Reports: Regular Rate, Regular Rhythm GI/Abdominal Exam: Normal Bowel Sounds, Soft, Non-Tender, No Distention (Male) Exam: Deferred Rectal (Males) Exam: Deferred Back Exam: Reports: Normal Inspection, Full Range of Motion Extremities: Normal Inspection, Normal Range of Motion, Non-Tender, No Pedal Edema, Normal Capillary Refill Skin: Reports: Warm, Dry, Intact Neurological: Reports: No New Focal Deficit, Normal Gait, Normal Speech, Normal Tone, Strength Equal Bilateral, Sensation Intact, Cranial Nerves Intact Psy/Mental Status: Reports: Alert, Normal Affect, Normal Mood
[2020-01-13] MEDS ORDERED: metFORMIN 500 MG Tab PO SCH (17:00)
[2020-01-13] MEDS ORDERED: NORTRIPTYLINE HCL 100 MG PO SCH (21:00)
[2020-01-13] MEDS ORDERED: Non-Formulary Medication 1 Each (Pravastatin Sodium 40 MG) PO SCH (21:00)
[2020-01-13] MEDS ORDERED: Lisinopril 10 MG Tab PO SCH (21:00)
== END 2020-01-13 14:10 | disposition home or self-care (01) ==
LOC: JD.ED 12:51 → JD.MS 16:13
PROVIDERS: ADMIT Family Medicine; ATTEND Family Medicine
DX: I63.9 Cerebral infarction, unspecified (principal); G81.92 Hemiplegia, unspecified affecting left dominant side; I10 Essential (primary) hypertension; E78.5 Hyperlipidemia, unspecified; M10.9 Gout, unspecified; F41.9 Anxiety disorder, unspecified; K21.9 Gastro-esophageal reflux disease without esophagitis; E87.1 Hypo-osmolality and hyponatremia; R73.9 Hyperglycemia, unspecified; Z20.828 Contact with and (suspected) exposure to other viral communicable diseases; Z88.0 Allergy status to penicillin; Z87.891 Personal history of nicotine dependence; Z79.82 Long term (current) use of aspirin; Z79.899 Other long term (current) drug therapy
CPT/HCPCS: 36415; 70450; 70496; 70498; 70551; 80053; 80061; 80162; 82962; 83036; 83735; 84443; 84484; 84550; 85025; 85610; 85730; 93005; 93225; 93226; 93306; 96360; 96361; 97162; 97165; 99285; A9270; J1650; J7050; Q9967; U0002; 93010; 99217; 99220; 99284

== ENCOUNTER 2021-01-07 06:52 | Day surgery (SDC) | payer MEDICARE, BC ==
[2021-01-07] MEDS ORDERED: Sodium Chloride 0.9% 10 ML Syringe FLUSH PRN (07:00)
[2021-01-07] MEDS ORDERED: Lidocaine 1%/Sod Bicarbonate in NS 8.4% 1 ML Syringe IDERM PRN (07:00)
[2021-01-07] MEDS ORDERED: Lactated Ringers 1,000 ML IV SCH (07:00)
--- NOTE | 2021-01-07 07:19 | PCM.PREANE ---
Preanesthetic Assessment - Anesthesia/Transfusion/Family Hx Anesthesia History: Prior Anesthesia Without Reaction Family History of Anesthesia Reaction: No Transfusion History: No Prior Transfusion(s) - Review of Systems General: No Symptoms, Other (4 beers per day) Pulmonary: Other (had SCOTT, but states he doesnt anymore, denies SOB) Cardiovascular: No Symptoms, Other (HTN, CAD, cardiomyopathy, > 4 mets) Gastrointestinal: No Symptoms Neurological: Other (hx of CVA in 12/2019, no residual effects) Other: Reports: Diabetes (type 2, no meds and does not monitor BS), Depression, Anxiety - Physical Assessment NPO Status Date: 01/06/21 NPO Status Time: 22:30 Weight: 82 kg ASA Class: 3 Mental Status: Alert & Oriented x3 Airway Class: Mallampati = 2 Dentition: Reports: Dentures (top and bottom) Thyro-Mental Finger Breadths: 3 Mouth Opening Finger Breadths: 3 ROM/Head Extension: Full Lungs: Clear to Auscultation, Normal Respiratory Effort Cardiovascular: Regular Rate, Regular Rhythm - Imaging/EKG Impressions: 12/2019 ekg demonstrated SR - Allergies Allergies/Adverse Reactions: Allergies Allergy/AdvReac Type Severity Reaction Status Date / Time atorvastatin Allergy Cannot Verified 01/04/21 10:13 Remember Penicillins Allergy Other Verified 01/04/21 10:13 - Blood Blood Available: No Product(s) Available: None - Anesthesia Plan Beta Anthony: Carvedilol Med Last Dose Date: 01/06/21 Med Last Dose Time: 18:00 - Acknowledgements Anesthesia Type Planned: MAC Pt an Appropriate Candidate for the Planned Anesthesia: Yes Alternatives and Risks of Anesthesia Discussed w Pt/Guardian: Yes Pt/Guardian Understands and Agrees with Anesthesia Plan: Yes PreAnesthesia Questionnaire HEENT History: Reports: Allergic Rhinitis, Cataract, Impaired Vision, Sinusitis, Other (See Below) Other HEENT History: pharyngitis and nasopharyngitis, post nasal drip, has glasses, has dentures Cardiovascular History: Reports: CAD, Cardiomyopathy, High Cholesterol, Hypertension, Other (See Below) Other Cardiovascular History: heart ?solomon kinked therefore on pravochol Respiratory History: Reports: Sleep Apnea Gastrointestinal History: Reports: Chronic Constipation, Colon Polyp, GERD Genitourinary History: Reports: BPH, Other (See Below) Other Genitourinary History: ERECTILE DYSFUNCTION INSTRUMENT/CONTROL TECHNICIAN History: Reports: None Musculoskeletal History: Reports: Arthritis, Gout, Other (See Below) Other Musculoskeletal History: LEFT SHOULDER IMPINGEMENT Neurological History: Reports: CVA, Other (See Below) Other Neuro History: NEURITIS, L4L5 BULGING DISC, LEFT SIDED WEAKNESS Psychiatric History: Reports: Anxiety Endocrine/Metabolic History: Reports: Diabetes, Type II Hematologic History: Reports: Other (See Below) Other Hematologic History: DECREASED SODIUM, ELEVATED PLATELETS Immunologic History: Reports: None Oncologic (Cancer) History: Reports: None, Other (See Below) Dermatologic History: Reports: Psoriasis Other Dermatologic History: extremities psoriasis, ACTINIC KERATOSIS, RASH, SEBORRHEIC KERATOSIS, SKIN TAG, TINEA - Past Surgical History Head Surgeries/Procedures: Reports: None HEENT Surgical History: Reports: Cataract Surgery, Naso-Sinus Surgery, Oral Surgery Cardiovascular Surgical History: Reports: None Respiratory Surgical History: Reports: None GI Surgical History: Reports: Appendectomy, Colonoscopy, EGD, Hernia Repair/Other, Polypectomy Other GI Surgeries/Procedures: 4 polyps removed Female Surgical History: Reports: None Male Surgical History: Reports: None Endocrine Surgical History: Reports: None Neurological Surgical History: Reports: None Dermatological Surgical History: Reports: Other (See Below) - SUBSTANCE USE Tobacco Use Status *Q: Former Tobacco User Days Per Week of Alcohol Use: 7 Number of Drinks Per Day: 4 Total Drinks Per Week: 28 Recreational Drug Use History: No - HOME MEDS Home Medications: Home Meds Allopurinol [Zyloprim] 150 mg PO DAILY 01/12/20 [History] Calcium Carbonate 600 mg PO DAILY 01/12/20 [History] Nortriptyline HCl [Pamelor] 100 mg PO BEDTIME 01/12/20 [History] Pravastatin Sodium [Pravachol] 40 mg PO BEDTIME 01/12/20 [History] Clopidogrel [Plavix] 75 mg PO DAILY #21 tablet 01/13/20 [Rx] carvediloL [Coreg] 25 mg PO BID 01/13/20 [History] Aspirin 81 mg PO DAILY 01/04/21 [History] Betamethasone Dipropionate [Diprolene 0.05% Lotion] 1 dose TOP BID PRN 01/04/21 [History] Clobetasol [Temovate 0.05%] 1 dose TOP BID PRN 01/04/21 [History] Clotrimazole [Lotrimin AF 1% Crm] 1 dose TOP BID PRN 01/04/21 [History] Folic Acid 1 mg PO DAILY 01/04/21 [History] Ketoconazole [Nizoral A-D] 1 dose TOP BID PRN 01/04/21 [History] Mupirocin Calcium [Bactroban] 1 dose NASBOTH BID PRN 01/04/21 [History] Pantoprazole Sodium [Protonix] 40 mg PO DAILY 01/04/21 [History] Pravastatin Sodium [Pravastatin (Pravachol)] 40 mg PO DAILY 01/04/21 [History] Triamcinolone Acetonide [Triamcinolone Acetonide 0.1% Crm] 1 dose TOP BID PRN 01/04/21 [History] lisinopriL [Lisinopril] 5 mg PO DAILY 01/04/21 [History] - CURRENT (IN HOUSE) MEDS Current Meds: Current Medications Lactated Ringer's (Ringers, Lactated) 1,000 mls @ 125 mls/hr IV ASDIRECTED YUKO Stop: 01/07/21 23:00 Lidocaine/Sodium Bicarbonate (Lidocaine 1%/Sod Bicarbonate In Ns 8.4% 1 Ml Syringe) 0.25 ml IDERM ONETIME PRN PRN Reason: Prior to IV Start Stop: 01/07/21 18:00 Sodium Chloride (Sodium Chloride 0.9% 10 Ml Syringe) 10 ml FLUSH ASDIRECTED PRN PRN Reason: Keep Vein Open Stop: 01/07/21 18:00
[2021-01-07] MEDS ORDERED: Propofol 200 MG/20 ML SDV ONE ×2 (07:31→08:54)
--- NOTE | 2021-01-07 09:23 | PCM48HPAN ---
Post Anesthesia Note - EVALUATION WITHIN 48HRS OF ANESTHETIC Vital Signs in Normal Range: Yes Patient Participated in Evaluation: Yes Respiratory Function Stable: Yes Airway Patent: Yes Cardiovascular Function Stable: Yes Hydration Status Stable: Yes Pain Control Satisfactory: Yes Nausea and Vomiting Control Satisfactory: Yes Mental Status Recovered: Yes Vital Signs: Last Vital Signs Temp 36.9 C 01/07/21 07:00 Pulse 93 01/07/21 07:00 Resp 16 01/07/21 07:00 BP 142/83 H 01/07/21 07:00 Pulse Ox 98 01/07/21 07:00
--- NOTE | 2021-01-07 10:12 | PROC ---
DATE OF OPERATION: 01/07/2021 SURGEON: Randal Hood MD PREOPERATIVE DIAGNOSIS: Prior history of colon polyp. POSTOPERATIVE DIAGNOSES: Colonic polyps and hemorrhoids and skin tag. OPERATION PERFORMED: Colonoscopy. ESTIMATED BLOOD LOSS: Minimal. COMPLICATIONS: None. FINDINGS: Prior polypectomy sites were clear. 6 small polyps found and removed. INDICATION AND CONSENT: Mr. Umana is a 75-year-old male with a prior history of polyps from a colonoscopy that was done last year. The patient had a large 1.8 cm cecal polyp that was removed. Area was tattooed and several other polyps. Therefore, a short interval followup colonoscopy was advised due to large piecemeal removal of polyps. That is why patient presented for this. However, in December last year, the patient sustained a stroke and was placed on dual anti-platelet therapy. Therefore, I recommended that the patient complete a full year of dual anti-platelet therapy before interruption. The patient has just completed a full year of this. Therefore, Plavix was held, aspirin was continued, and we discussed risks, benefits, and alternatives. Informed consent was obtained. DESCRIPTION OF PROCEDURE: The patient was taken to the procedure room, placed in a left lateral decubitus position. Time-out was performed. Monitored anesthesia care was induced and we began the procedure. Perianal exam was significant for skin tags in the perianal area. Digital rectal exam was normal. We placed a regular scope into the rectum. However, at the rectosigmoid junction, it was difficult to pass the regular scope. It was unclear to me whether this area was narrowed or just had a sharp angle. Therefore, we switched to a pediatric colonoscope. This was able to pass through the area with some maneuvering and we had taken the scope all the way to the cecum. The ileocecal valve and the cecum were photographed and the appendiceal orifice was also photographed. In the cecum, there was a 4 mm semi-pedunculated polyp. This was removed with the cold forceps. Areas of prior polypectomies at the cecum and ascending colon were identified by the prior tattoo ink. They appeared clear of polyps. Above the ileocecal valve fold there was another 4 mm semi-pedunculated polyp. This was removed with a hot snare. Then, there were 2 additional polyps in the ascending colon that were 2 mm each. These were removed with cold forceps. Therefore, there was a total of 3 ascending colon polyps and 1 cecal polyp. There was one 3 mm polyp in the transverse colon which was removed with cold forceps and another 3 mm polyp in the descending colon that was removed with the cold forceps. The rest of the colon appeared normal. On retroflexion in the rectum, there were some grade 2 internal hemorrhoids. No stigmata of bleeding. EBL was minimal. Air was suctioned out and colonoscopy concluded. The patient allowed to return home and follow up in 2 weeks for postop check. CAITLYN /[id number] MTDD
== END 2021-01-07 10:15 | disposition home or self-care (01) ==
LOC: JD.SDS 06:52
PROVIDERS: ATTEND Surgery
DX: Z12.11 Encounter for screening for malignant neoplasm of colon (principal); D12.2 Benign neoplasm of ascending colon; D12.0 Benign neoplasm of cecum; D12.4 Benign neoplasm of descending colon; I25.10 Atherosclerotic heart disease of native coronary artery without angina pectoris; E11.9 Type 2 diabetes mellitus without complications; K64.1 Second degree hemorrhoids; E78.5 Hyperlipidemia, unspecified; I10 Essential (primary) hypertension; K21.9 Gastro-esophageal reflux disease without esophagitis; Z88.0 Allergy status to penicillin; Z88.8 Allergy status to other drugs, medicaments and biological substances; Z79.899 Other long term (current) drug therapy; Z79.82 Long term (current) use of aspirin; Z87.891 Personal history of nicotine dependence
CPT/HCPCS: 00812; 88305; 99100; J2370; J2704; J7120